=== PATIENT | male | born 1990 | race American Indian/Alaskan Native ===

== ENCOUNTER 2020-10-25 09:54 | Emergency (ER) | payer MEDICAID ==
[2020-10-25 10:12] VITALS: BP 103/64
--- NOTE | 2020-10-25 11:30 | Emergency Department Report ---
ED General Adult HPI - General Chief complaint: Abdominal Pain Stated complaint: LT SIDE RIB PAIN Time Seen by Provider: 10/25/20 11:26 Source: patient Mode of arrival: Ambulatory Limitations: No Limitations - History of Present Illness Initial comments: 30-year-old male with no significant past medical history presents to the ER today complaining of pain to left lateral rib area. He states that started a couple days ago and he has been constant dull and achy. It does not radiate. He states that nothing seems to make it worse including deep breaths or make it better. He denies any injury or strenuous activity. He denies any associated cough, shortness of breath, rash, nausea, vomiting, abdominal pain or diarrhea or fever or chills. He also complains of a burning sensation underneath the shaft of his penis which started a couple days ago. He denies any pain around the meatus or dysuria or any penile discharge. He denies any rash. He denies any testicular pain or swelling. He does admit to having a new recent sexual partner. He states he is unsure if the partner has any STDs. MD Complaint: Left Lateral Rib/Chest pain/burning sensation to penis -: days(s) (2-3) Location: chest, genitals - Related Data Previous Rx's Medication Instructions Recorded Last Taken Type Ibuprofen [Motrin] 600 mg PO Q8H PRN #30 tablet 10/25/20 Unknown Rx ED Review of Systems ROS: Stated complaint: LT SIDE PAIN Other details as noted in HPI Comment: All other systems reviewed and negative Constitutional: denies: chills, fever Respiratory: denies: cough, shortness of breath, SOB with exertion, SOB at rest, wheezing Cardiovascular: chest pain (Left lateral chest area). denies: palpitations, dyspnea on exertion, orthopnea, edema, syncope, paroxysmal nocturnal dyspnea Gastrointestinal: denies: abdominal pain, nausea, vomiting, diarrhea, constipation, hematochezia Genitourinary: denies: urgency, dysuria, frequency, hematuria, discharge, testicular pain, testicular mass Musculoskeletal: denies: back pain, joint swelling, arthralgia Skin: denies: rash, lesions Neurological: denies: headache, weakness, numbness, paresthesias, confusion, abnormal gait Psychiatric: denies: anxiety, depression Hematological/Lymphatic: denies: easy bleeding, easy bruising ED Past Medical Hx - Past Medical History Previous Medical History?: Yes Additional medical history: Right Leg Fracture - Surgical History Past Surgical History?: Yes Additional Surgical History: Right Leg - Social History Smoking Status: Never Smoker - Medications Home Medications: Home Medications Medication Instructions Recorded Confirmed Last Taken Type Ibuprofen [Motrin] 600 mg PO Q8H PRN #30 tablet 10/25/20 Unknown Rx ED Physical Exam - General Limitations: No Limitations General appearance: alert, in no apparent distress - Head Head exam: Present: atraumatic, normocephalic, normal inspection - Eye Eye exam: Present: normal appearance, PERRL, EOMI Pupils: Present: normal accommodation - ENT ENT exam: Present: normal exam, mucous membranes moist - Neck Neck exam: Present: normal inspection, full ROM - Respiratory Respiratory exam: Present: normal lung sounds bilaterally. Absent: respiratory distress, chest wall tenderness, accessory muscle use, decreased breath sounds, prolonged expiratory - Cardiovascular Cardiovascular Exam: Present: regular rate, normal rhythm, normal heart sounds - GI/Abdominal GI/Abdominal exam: Present: soft. Absent: distended, tenderness - exam: Present: normal inspection External exam: Present: normal external exam - Neurological Exam Neurological exam: Present: alert, oriented X3, CN II-XII intact, normal gait - Psychiatric Psychiatric exam: Present: normal affect, normal mood - Skin Skin exam: Present: intact ED Course Vital Signs 10/25/20 10:10 Temperature 98.2 F Pulse Rate 50 L Respiratory 18 Rate Blood Pressure 103/64 O2 Sat by Pulse 98 Oximetry ED Medical Decision Making - Radiology Data Radiology results: report reviewed - Medical Decision Making 30-year-old male with no significant past medical history presents to the ER today complaining of pain to left lateral rib area. He states that started a couple days ago and he has been constant dull and achy. It does not radiate. He states that nothing seems to make it worse including deep breaths or make it better. He denies any injury or strenuous activity. He denies any associated cough, shortness of breath, rash, nausea, vomiting, abdominal pain or diarrhea or fever or chills. He also complains of a burning sensation underneath the s haft of his penis which started a couple days ago. He denies any pain around the meatus or dysuria or any penile discharge. He denies any rash. He denies any testicular pain or swelling. He does admit to having a new recent sexual partner. He states he is unsure if the partner has any STDs. 1312: Patient is well-appearing, nontoxic, does not appear to be in any acute pain or respiratory distress. He has a soft nontender abdomen. His vital signs are normal. Chest x-ray shows nothing acute. Urinalysis unremarkable. Patient opted to be treated prophylactically for gonorrhea and chlamydia. His history, physical exam and diagnostic testing does not indicate any signs of acute coronary syndrome, PE, significant pneumonia, pneumothorax, testicular torsion, significant bacterial infection, sepsis or any other significant emergent issues at this time. Therefore no further work-up indicated at this time. Discussed suspected diagnosis and treatment plan with patient. Patient stable at time of discharge. Critical care attestation.: If time is entered above; I have spent that time in minutes in the direct care of this critically ill patient, excluding procedure time. ED Disposition Clinical Impression: Rib pain on left side, Penile pain Disposition: TO HOME OR SELFCARE Is pt being admited?: No Does the pt Need Aspirin: No Condition: Stable Instructions: Chest Wall Pain, [id number], Pain Without a Known Cause, Chest Pain (ED) Additional Instructions: Take the motrin as prescribed. Your partner should be treated as well for STD since you got treated. I recommend no sexual contact for 7 days post treatment. Follow up with PCP. Return to ED if worse. Prescriptions: Ibuprofen [Motrin] 600 mg PO Q8H PRN #30 tablet PRN Reason: Pain Referrals: PRIMARY CARE, [Primary Care Provider] - 3-5 Days Forms: Work/School Release Form(ED) Time of Disposition: 13:10
[2020-10-25 11:45] LABS: Bilirubin,Urine NEG (Negative); Blood,Urine SM (Negative); Color,Urine Yellow (Yellow); Mucus,Urine 3+ /HPF; Urobilinogen,Urine < 2.0 mg/dL (<2.0)
--- NOTE | 2020-10-25 12:48 | XRay Report ---
CHEST 2 VIEWS INDICATION: left rib/chest pain. COMPARISON: None FINDINGS: Support devices: None. Heart: Within normal limits. Lungs/pleura: No acute air space or interstitial disease. No pneumothorax. Additional findings: Left thoracic wall appears unremarkable on x-ray. IMPRESSION: No acute findings. Signer Name: Keith Vasques Jr, MD Signed: 10/25/2020 12:43 PM Workstation Name: [id number]
[2020-10-25] MEDS ORDERED: LIDOCAINE-MPF (1%) 10 MG/1 ML VIAL 5 ML INFILTRATI ONE (13:08)
[2020-10-25] MEDS ORDERED: AZITHROMYCIN 250 MG TAB PO ONE (13:08)
== END 2020-10-25 13:55 | disposition home or self-care (01) ==
LOC: ED 09:54
DX: N48.89 Other specified disorders of penis (principal); R07.81 Pleurodynia; Z79.899 Other long term (current) drug therapy; Z98.890 Other specified postprocedural states
CPT/HCPCS: 71046; 81001; 96372; 99283; J0696

== ENCOUNTER 2021-01-04 12:18 | Emergency (ER) | payer SELFPAY ==
--- NOTE | 2021-01-04 13:01 | Emergency Department Report ---
ED General Adult HPI - General Chief complaint: Chest Pain Stated complaint: LEFT SIDE PAIN X 2WEEKS Time Seen by Provider: 01/04/21 13:01 Source: patient Mode of arrival: Ambulatory Limitations: No Limitations - History of Present Illness Initial comments: 30-year-old -[place] male patient presents with complaints of left lower rib/side pain x2 weeks. He rates his pain as a 1-2/10 in severity and states it is intermittent. No current pain per patient. Patient reports pain occurs mainly after eating. He does admit to history of GERD. He describes the pain as aching. He denies chest pain, shortness of breath, cough, nausea/vomiting/di arrhea, constipation, or fever/chills/sweats. No history of abdominal surgeries or bowel obstructions per patient. - Related Data Previous Rx's Medication Instructions Recorded Last Taken Type Ibuprofen [Motrin] 600 mg PO Q8H PRN #30 tablet 10/25/20 Unknown Rx Famotidine [Pepcid] 20 mg PO BID #20 tablet 01/04/21 Unknown Rx ED Review of Systems ROS: Stated complaint: LEFT SIDE PAIN X 2WEEKS Other details as noted in HPI Constitutional: denies: chills, diaphoresis, fever, malaise, weakness ENT: denies: throat pain Respiratory: denies: cough, shortness of breath Cardiovascular: denies: chest pain Gastrointestinal: as per HPI. denies: nausea, vomiting, diarrhea, constipation, hematemesis, melena, hematochezia Genitourinary: denies: urgency, dysuria, frequency, hematuria, discharge Musculoskeletal: denies: back pain Skin: denies: rash, lesions, change in color Neurological: denies: headache Hematological/Lymphatic: denies: swollen glands ED Past Medical Hx - Past Medical History Additional medical history: Right Leg Fracture / GERD - Surgical History Additional Surgical History: Right Leg - Social History Smoking Status: Never Smoker Substance Use Type: None - Medications Home Medications: Home Medications Medication Instructions Recorded Confirmed Last Taken Type Ibuprofen [Motrin] 600 mg PO Q8H PRN #30 tablet 10/25/20 Unknown Rx Famotidine [Pepcid] 20 mg PO BID #20 tablet 01/04/21 Unknown Rx ED Physical Exam - General Limitations: No Limitations General appearance: alert, in no apparent distress - Eye Eye exam: Present: normal appearance. Absent: scleral icterus - Neck Neck exam: Present: normal inspection, full ROM - Respiratory Respiratory exam: Present: normal lung sounds bilaterally. Absent: respiratory distress - Cardiovascular Cardiovascular Exam: Present: regular rate, normal rhythm. Absent: systolic murmur, diastolic murmur, rubs, gallop - GI/Abdominal GI/Abdominal exam: Present: soft, normal bowel sounds. Absent: distended, tenderness, guarding, rebound, rigid - Extremities Exam Extremities exam: Present: full ROM - Back Exam Back exam: Present: normal inspection. Absent: CVA tenderness (R), CVA tenderness (L) - Neurological Exam Neurological exam: Present: alert, oriented X3, normal gait - Psychiatric Psychiatric exam: Present: normal affect, normal mood - Skin Skin exam: Present: warm, dry, intact, normal color. Absent: rash, cyanosis, diaphoretic, ecchymosis ED Course Vital Signs 01/04/21 01/04/21 01/04/21 12:57 15:37 15:39 Temperature 98.0 F Pulse Rate 55 L 53 L Respiratory 18 18 16 Rate Blood Pressure 118/70 Blood Pressure 103/64 [Left] O2 Sat by Pulse 97 100 Oximetry ED Medical Decision Making - Lab Data Result diagrams: 01/04/21 14:18 01/04/21 14:18 Lab Results 01/04/21 01/04/21 Range/Units 14:18 14:18 WBC 4.8 (4.5-11.0) K/mm3 RBC 5.33 H (3.65-5.03) M/mm3 Hgb 15.9 H (11.8-15.2) gm/dl Hct 47.3 H (35.5-45.6) % MCV 89 (84-94) fl MCH 30 (28-32) pg MCHC 34 (32-34) % RDW 13.0 L (13.2-15.2) % Plt Count 159 (140-440) K/mm3 Lymph % (Auto) Play Reader [place] % (Auto) Play Reader Eos % (Auto) Play Reader Baso % (Auto) Play Reader Lymph # (Auto) Play Reader [place] # (Auto) Play Reader Eos # (Auto) Play Reader Baso # (Auto) Play Reader Add Manual Diff Complete Total Counted 100 Seg Neutrophils % Play Reader Seg Neuts % (Manual) 39.0 L (40.0-70.0) % Lymphocytes % (Manual) 42.0 H (13.4-35.0) % Monocytes % (Manual) 12.0 H (0.0-7.3) % Eosinophils % (Manual) 4.0 (0.0-4.3) % Basophils % (Manual) 3.0 H (0.0-1.8) % Nucleated RBC % Not Reportable Seg Neutrophils # Play Reader Seg Neutrophils # Man 1.9 (1.8-7.7) K/mm3 Band Neutrophils # 0.0 K/mm3 Lymphocytes # (Manual) 2.0 (1.2-5.4) K/mm3 Abs React Lymphs (Man) 0.0 K/mm3 Monocytes # (Manual) 0.6 (0.0-0.8) K/mm3 Eosinophils # (Manual) 0.2 (0.0-0.4) K/mm3 Basophils # (Manual) 0.1 (0.0-0.1) K/mm3 Metamyelocytes # 0.0 K/mm3 Myelocytes # 0.0 K/mm3 Promyelocytes # 0.0 K/mm3 Blast Cells # 0.0 K/mm3 WBC Morphology Not Reportable Hypersegmented Neuts Not Reportable Hyposegmented Neuts Not Reportable Hypogranular Neuts Not Reportable Smudge Cells Not Reportable Toxic Granulation Not Reportable Toxic Vacuolation Not Reportable Dohle Bodies Not Reportable Pelger-Huet Anomaly Not Reportable Dina Rods Not Reportable Platelet Estimate Not Reportable Clumped Platelets Not Reportable Plt Clumps, EDTA Not Reportable Large Platelets Not Reportable Giant Platelets Not Reportable Platelet Satelliting Not Reportable Plt Morphology Comment Not Reportable RBC Morphology Not Reportable Dimorphic RBCs Not Reportable Polychromasia Not Reportable Hypochromasia Not Reportable Poikilocytosis Not Reportable Anisocytosis Rare Microcytosis Rare Macrocytosis Not Reportable Spherocytes Not Reportable Pappenheimer Bodies Not Reportable Sickle Cells Not Reportable Target Cells Not Reportable Tear Drop Cells Not Reportable Ovalocytes Not Reportable Helmet Cells Not Reportable Alfred[place] Bodies Not Reportable [place] Rings Not Reportable [place] Cells Not Reportable Bite Cells Not Reportable Crenated Cell Not Reportable Elliptocytes Not Reportable Acanthocytes (Spur) Not Reportable Rouleaux Not Reportable Hemoglobin C Crystals Not Reportable Schistocytes Not Reportable Malaria parasites Not Reportable [place] Bodies Not Reportable Hem Pathologist Commnt No Sodium 138 (137-145) mmol/L Potassium 4.6 (3.6-5.0) mmol/L Chloride 102.4 (98-107) mmol/L Carbon Dioxide 29 (22-30) mmol/L Anion Gap 11 mmol/L BUN 15 (9-20) mg/dL Creatinine 1.3 (0.8-1.3) mg/dL Estimated GFR > 60 ml/min BUN/Creatinine Ratio 12 % Glucose 102 H (75-100) mg/dL Calcium 9.2 (8.4-10.2) mg/dL Total Bilirubin 1.00 (0.1-1.2) mg/dL AST 19 (5-40) units/L ALT 13 (7-56) units/L Alkaline Phosphatase 50 (35-129) units/L Troponin T < 0.010 (0.00-0.029) ng/mL Total Protein 6.9 (6.3-8.2) g/dL Albumin 4.3 (3.9-5) g/dL Albumin/Globulin Ratio 1.7 % Lipase 14 (13-60) units/L - Medical Decision Making 30-year-old -[place] male patient presents with complaints of left lower rib/side pain x2 weeks. He rates his pain as a 1-2/10 in severity and states it is intermittent. No current pain per patient. Patient reports pain occurs mainly after eating. He does admit to history of GERD. He describes the pain as aching. He denies chest pain, shortness of breath, cough, nausea/vomiting/diarrhea, constipation, or fever/chills/sweats. No history of abdominal surgeries or bowel obstructions per patient. No tenderness to palpation or other abnormalities noted on physical exam. Lungs are clear to auscultation bilaterally. Chest x-ray is negative for any acute abnormalities. Given patient's history of GERD and that pain occurs after eating, will treat patient for GERD. Recommend follow-up with primary care in 2 to 3 days. His vitals are normal, he is well-appearing, he is stable for discharge home. Discussed signs and symptoms that should prompt immediate return to the emergency department in detail with patient who verbalizes understanding. Critical care attestation.: If time is entered above; I have spent that time in minutes in the direct care of this critically ill patient, excluding procedure time. ED Disposition Clinical Impression: Abdominal pain Qualifiers: Abdominal location: left upper quadrant Qualified Code(s): R10.12 - Left upper quadrant pain Disposition: TO HOME OR SELFCARE Is pt being admited?: No Condition: Stable Instructions: Abdominal Pain, Adult, Gastroesophageal Reflux Disease, Adult Prescriptions: Famotidine [Pepcid] 20 mg PO BID #20 tablet Referrals: [facility] [Provider Group] - 2-3 Days
--- NOTE | 2021-01-04 13:31 | XRay Report ---
CHEST PA AND LATERAL VIEWS INDICATION: left lower rib pain. COMPARISON: 10/25/2020 FINDINGS: Support devices: None. Heart: Within normal limits. Lungs/Pleura: No acute pulmonary or pleural findings. IMPRESSION: 1. No acute findings. Signer Name: Yossi Castañeda MD Signed: 01/04/2021 1:27 PM Workstation Name: [id number]
[2021-01-04 14:47] LABS: Hematocrit 47.3 % (35.5-45.6); Hemoglobin 15.9 gm/dl (11.8-15.2); Mean Corpuscular HGB Conc 34 % (32-34); Mean Corpuscular Volume 89 fl (84-94); Platelet Count 159 K/mm3 (140-440); Red Blood Count 5.33 M/mm3 (3.65-5.03)
[2021-01-04 14:59] LABS: Alanine Aminotransferase 13 units/L (7-56); Albumin 4.3 g/dL (3.9-5); BUN/Creatinine Ratio 12; Blood Urea Nitrogen 15 mg/dL (9-20); Calcium 9.2 mg/dL (8.4-10.2); Hemolysis Index 5
[2021-01-04 15:39] VITALS: BP 103/64
[2021-01-04 15:51] LABS: Anisocytosis RARE; Total Cells Counted 100
== END 2021-01-04 15:41 | disposition home or self-care (01) ==
LOC: ED 12:18
DX: R10.12 Left upper quadrant pain (principal); K21.9 Gastro-esophageal reflux disease without esophagitis; Z79.899 Other long term (current) drug therapy; Z98.890 Other specified postprocedural states
CPT/HCPCS: 36415; 71046; 80053; 83690; 84484; 85007; 85025